=== PATIENT | female | born 2000 | race Caucasian/White ===

== ENCOUNTER 2022-07-15 18:27 | Observation (INO) | payer OTHER ==
--- OUTSIDE RECORDS SUMMARY | 2022-07-15 18:31 | XMS REPORT | Continuity of Care Document ---
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 09:14:53 RAGINI 2022-07-13 2022-07-13 Emergency X [facility] ERT [id number] [facility] 12:25:00 17:02:00 TR rowan [facility] 2022-07-13 2022-07-13 Emergency [facility] [id number] [facility] 12:25:00 17:02:00 Tr BRICENO 350.1.13.10 anum [facility] 4.2.7.2.686 [facility] [id number] [facility] 084 Branch 2022-07-05 2022-07-05 Office [facility] 1.2.840.114 [id number] [facility] 14:32:46 16:14:51 Visit RAGINI Qureshi 350.1.13.21 Co llege 0.2.7.2.686 [id number] [facility] paulina 510 e 2022-06-28 2022-06-29 Outpatient DEREK MENDES [facility] [id number] [facility] 10:07:31 10:14:10 BASSEM kilpatrick of Medicin e 2022-06-282022-06-28 Outpatient EL CINTHYA, SLE Surgery [id number] [facility] 06:44:00 10:00:00 [facility] 2022-06-28 2022-06-28 [facility] [id number] 06:44:00 10:00:00 Encounter [facility] 2022-06-28 2022-06-[address] [facility] [id number] 08:01:00 08:53:00 Event AudreyLashay Noris [facility] 2022-06-28 2022-06-28 Surgery [facility] [id number] 08:00:00 08:30:00 [facility] 2022-06-28 2022-06-28 Travel [facility] [id number] [facility] 00:[facility]00 00:00:00 [facility] 2022-06-17 2022-06-17 Outpatient [facility] [id number] SLE 10:28:06 23:59:00 2022-06-17 2022-06-17 [facility] [id number] 09:45:00 23:59:00 Encounter [facility] 2022-06-17 2022-06-17 Travel [facility] [id number] [facility] 00:00[facility]00 00:00:00 [facility] 2022-06-14 2022-06-14 Office DEREK Gomez 1.2.840.114 [id number] [facility] 16:30:00 17:27:[address] [facility] AMBUL[facility] 350.1.13.21 College Y 0.2.7.2.686 [id number] Medi paulina 325 e 2022-06-05 2022-06-05 Emergency ER [facility] [id number] SLSDanny 09:52:00 11:52:00 JINIT 2022-06-05 2022-06-[address] [facility] [id number] [facility] 09:52:00 11:52:00 [facility] 2022-06-02 2022-06-02 Outpatient DEREK WORRELL [facility] [id number] [facility] 16:40:32 16:40:32 SHASHANK Grey ge of Medicin e 2022-04-19 2022-04-19 Emergency Mahad, 1.2.840.1 [id number] Methodi 11:13:00 11:55:00 Linda 94780.1.1 771 Bruce 3.430.2.7 Hospit a .3.140346 l .8 2022-04-19 2022-04-19 Emergency MAHAD, [facility] [id number] [place] [address] 00:00:00 00:00:[address] 2022-04-19 2022-04-19 Travel 1.2.840.1 1.2.167.633 [id number] Methodi 00:00:00 00:00:[address] 3.430.2.7 0.2.7.3.698 Ho spita .3.149373 084.8 l .8 2021-12-14 2021-12-14 Outpatient [facility] PDPFFEQ XAR [facility] 00:00:00 00:00:00 [facility]- 07 2021-12-07 2021-12-07 Outpatient [facility]H CO[facility] PDPFFEQ XAR COH 00:00:00 00:00:00 [facility]-2021-11-18 2021-11-18 Outpatient DEREK ADHIKARI [facility] [id number] [facility] 08:57:48 09:03:20 MILAGRO Greyg e of Medicin e 2021-11-12 2021-11-12 Outpatient ARMANDO [facility] [id number] [facility] 13:02:16 13:19:29 Colleg e of Medicin e 2021-10-05 2021-10-05 Emergency 1.2.840.1 [id number] [id number] Methodi 15:52:00 16:53:[address] 3.430.2.7 Hospit a .3.902042 l .8 2021-10-05 2021-10-05 Emergency 1.2.840.1 [id number] 2100 [id number] Methodi 15:52:00 16:53:[address] 3.430.2.7 Hospit a .3.453071 l .8 2021-09-22 2021-09-22 Emergency Raymundo, 1.2.840.1 [id number] Methodi 21:59:00 23:09:[address] Deng 3.430.2.7 Hospit a .3.005037 l .8 2021-09-22 2021-09-22 Emergency Raymundo, 1.2.840.1 2099 [id number] Methodi 21:59:00 23:09:[address] Deng 3.430.2.7 Hospit a .3.094883 l .8 2021-09-22 2021-09-22 Travel 1.2.840.1 1.2.130.531 4741 [id number] Methodi 00:00:00 00:00:[address] 3.430.2.7 0.2.7.3.698 Ho spita .3.599516 084.8 l .8 2021-09-22 2021-09-22 Travel 1.2.840.1 1.2.257.445 [id number] [id number] Methodi 00:00:00 00:00:[address] 3.430.2.7 0.2.7.3.698 Ho spita .3.685406 084.8 l .8 2021-07-11 2021-07-11 Emergency Pham, 1.2.840.1 [id number] Methodi 22:59:00 23:14:[address] Beth 3.430.2.7 Hospit a .3.811459 l .8 2021-07-102021-07-10 Emergency 1.2.840.1 [id number] 2100 [id number] Methodi 19:42:00 20:40:[address] 3.430.2.7 Hospit a .3.942321 l .8 2021-07-10 2021-07-10 Travel 1.2.840.1 1.2.768.669 3346 [id number] Methodi 00:00:00 00:00:[address] 3.430.2.7 0.2.7.3.698 Ho spita .3.744839 084.8 l .8 2021-05-31 2021-05-31 Emergency Acosta, 1.2.840.1 [id number] Methodi 15:58:00 18:57:[address] 3.430.2.7 Hospit a .3.315977 l .8 2021-05-31 2021-05-31 Travel 1.2.840.1 1.2.111.630 5226 [id number] Methodi 00:00:00 00:00:[address] 3.430.2.7 0.2.7.3.698 Ho spita .3.005105 084.8 l .8 2020-08-03 2020-08-03 [place] [address] 2100 [id number] [place] 00:00:00 00:00:00 KAIT [address] 2020-03-14 2020-03-[address] [facility] 064 [id number] [place] 00:00:00 00:00:00 SOFIE [address] Results Test Description Test Time Test Comments Results Result Comments Source TEST, SERUM 2022-07-13 19:10:33 Test Item Value Reference Range Interpretation Comme nts PREG SERUM (test code = 2170917750) Negative MIQUEL (test code = MIQUEL) Less than 10 IU/L. ?If low titer or ectopic is suspected, resubmit specimen in 48-72 hours. [facility] METABOLIC PANEL (61739)2022-07-13 18:59:49 Test Item Value Reference Range Interpretation Comments NA (test code = 139 mmol/L 135-145 7489306323) K (test code = 4.1 mmol/L 3.5-5 4502427258) CL (test code = 109 mmol/L 98-108 H 1773697500) CO2 TOTAL (test code = 21 mmol/L 23-31 L 9766804762) AGAP (test code = 2-16 8858546557) BUN (test code = 5 mg/dL 7-23 L 5987093006) GLUCOSE (test code = 85 mg/dL 70-110 5553734286) CREATININE (test code = 0.71 mg/dL 0.5-1.04 6724634640) TOTAL BILI (test code = 0.5 mg/dL 0.1-1.3 1491641071) CALCIUM (test code = 9.6 mg/dL 8.6-10.6 7083789263) T PROTEIN (test code = 7.3 g/dL 6.3-8.2 8788171247) ALBUMIN (test code = 4.5 g/dL 3.5-5 2852809197) ALK PHOS (test code = 75 U/L 34-122 5327960413) ALTv (test code = 12 U/L 5-35 1742-6) AST(SGOT) (test code = 22 U/L 13-40 5346922333) eGFR (test code = mL/min/1.73m2 5378578121) MIQUEL (test code = MIQUEL) Association of Glomerular Filtration Rate (GFR) and Staging of Kidney Disease* + --+ --+ ------+| GFR (mL/min/1.73 m2) ?| With Kidney Damage ?| ?Without Kidney Damage+ --------+ --------+ +| ?>90 ?| ?Stage one ?| ? Normal ?+ ---+ ---+ -------+| ?60-89 ?| ?Stage two ?| ? Decreased GFR ? + --+ --+ ------+| ?30-59 ?| ?Stage three ?| ? Stage three ? + --+ --+ ------+| ?15-29 ?| ?Stage four ? | ? Stage four ?+ ---+ ---+ -------+| ?<15 (or dialysis) ? ?| ?Stage five ? | ? Stage five ?+ ---+ ---+ -------+ *Each stage assumes the associated GFR level has been in effect for at least three months. ?Stages 1 to 5, with or without kidney disease, indicate chronic kidney disease. Notes: Determination of stages one and two (with eGFR >59mL/min/1.73 m2) requires estimation of kidney damage for at least three months as defined by structural or functional abnormalities of the kidney, manifested by either:Pathological abnormalities or Markers of kidney damage (including abnormalities in the composition of the blood or urine or abnormalities in imaging tests). Lab Interpretation Abnormal (test code = 02721-2) [facility] 18:59:49 Test Item Value Reference Range Interpretation Comments LIPASE (test code = 6667014522) 45 U/L 0-220 Lab Interpretation (test code = Normal 15421-2) [facility] WITH [id number] 18:41:27 Test Item Value Reference Range Interpretation Comments WBC (test code = See_Comment [Automated 2890-2) message] The sy stem which generated this result transmitted reference range : 4.30 - 11.10 10*3/?L. The reference range was not used to interpret this result as normal/abnormal . RBC (test code = See_Comment [Automated 758-8) message] The sy stem which generated this result transmitted reference range : 3.93 - 5.25 10*6/?L. The reference range was not used to interpret this result as normal/abnormal . HGB (test code = 13.5 g/dL 11.6-15 718-7) HCT (test code = 39.6 % 35.7-45.2 4544-3) MCV (test code = 84.4 fL 80.6-95.5 787-2) MCH (test code = 28.8 pg 25.9-32.8 785-6) MCHC (test code = 34.1 g/dL 31.6-35.1 786-4) RDW-SD (test code = 38.2 fL 39-49.9 L 23878-0) RDW-CV (test code = 12.6 % 12-15.5 788-0) PLT (test code = See_Comment [Automated 777-3) message] The sy stem which generated this result transmitted reference range : 166 - 358 10*3/ ?L. The reference r neetu was not used to interpret this result as normal/abnormal . MPV (test code = 10.2 fL 9.5-12.9 50086-7) NRBC/100 WBC (test See_Comment [Automat ed code = 1413267844) message] The system which generated this result transmitted reference range : 0.0 - 10.0 /100 WBCs. The refer ence range was not u sed to interpret th is result as normal/abnormal . NRBC x10^3 (test code See_Comment [Auto mated = 8037628893) message] The s ystem which generated this result transmitted reference range : 10*3/?L. The reference range was not used to interpret this result as normal/abnormal . GRAN MAT (NEUT) % 62.8 % (test code = 770-8) IMM GRAN % (test code 0.40 % = 0767674158) LYMPH % (test code = 27.9 % 736-9) MONO % (test code = 6.9 % 5905-5) EOS % (test code = 1.3 % 713-8) BASO % (test code = 0.7 % 706-2) GRAN MAT x10^3(ANC) 6.68 10*3/uL 1.88-7.09 (test code = 0276474506) IMM GRAN x10^3 (test 0.04 10*3/uL 0-0.06 code = 8378907322) LYMPH x10^3 (test code 2.96 10*3/uL 1.32-3.29 = 731-0) MONO x10^3 (test code 0.73 10*3/uL 0.33-0.92 = 742-7) EOS x10^3 (test code = 0.14 10*3/uL 0.03-0.39 711-2) BASO x10^3 (test code 0.07 10*3/uL 0.01-0.07 = 704-7) Lab Interpretation Abnormal (test code = 71225-0) [facility] Hfms6422-06-93 14:12:14 Test Item Value Reference Range Interpretation Comments Case Report (test code Surgical Pathology = 104) Report Case: [id number] Authorizing Provider: Bassem Mendes Collected: 06/28/2022 08:31 AM Ordering Location: [facility] Endoscopy Received: 06/28/2022 11:23 AM Services Pathologist: Sierra Esquivel MD Specimen: Biopsy, Gastric, Random, R/O H.Pylori DIAGNOSIS (test code = o9vcvYRhTSBmo5voPIQhfC 3220) FuZzEwMzNcZnRuYmpcdWMx IHtccnRmMVxlcGljOTYwMl nawaBgRHMiyDKcJ3Iapbrp CCqaSA9qXC9ppThotJAqaK QwPOPyGtXei9vib677pQPg z4icWREUsawzkNv9zZpzJ3 1fe4E7RhcrJ10vwPJqHFQ2 HJJsKIHdyKSeZPWbLWU3XA LbyWZcU3edGWSoRZ8cgriz ABmbXTipWGFzzKK0YOJxlR LuC2BwHCUiFFetPMNibzz5 AbTlLv8rgTJkbZwvDLtgNP NsXMGqLEkgEHSuZqIlU4YW IZYSVCbtFrKNZU7MDOWMG1 KTTMtsdEUtBGCtCQ8rEeXB N7TOLyNyV2CPWAMBYAEQDN dbxYGwOZKxCV1kOo7pABIV ENZNLeFQQVBZDQYHMZ3ALU LTAIYGJ63GA6DKLHEYMwZH REVOVElGSUVEIEJZIFJPVV LEKcIfW3VIRD5nrQOcCFWo UUrmWHCoJ9OipOygaENanU zavwPnBLean7AoRNloJUJr QR5luMgqNCYfMB6tWUIcO1 yrmG8smgr6FkKuVSVwMuK4 PJQolqI3Nlb6WBOmXKxww0 etm4VbCAUqGQm1iMlsJyCe EUTue3jgneRjCfByLOYqTT MxFCLcnNDeO729h0ykb8sj jeRvuRS7HLEuMXB9AAinwm JphpG3IDvdcMZtOaQ4WFpk rqZoKXdkwqZwroVnOgy3TG IuC677DKA1sWhsy3ovJNN0 XJOmZLExRcDiUo7sgBNyM0 55NPTlRGNEXEMdzVe2WXTt smMixrDtxUSWw613S383y4 qjXLDgdvXgnYvVnefow0so Q512COJrxWEahhDlHgWxSE NmqGBtsSZ9OLBsLI3vpthp NJweJVlfOAXwnbS0ORNhoL NcH7PhFMLkPF2btyblDUG1 HJscKEFnKPE4FfCqXLAnu8 Nxdac3RbMidr6jan86QQR4 k0WsrYwsUPI9DCL8DrBwDx 6lyANfIDBfJB7bLvQzrUIt BEQmnq85gFckRLvoLFM5LP WmygDja0Xdp1wyMeYzbwWa G1ulY8GgTDZnLZJuGXQyIh HqrtFxk6Ygm8VkqBHoiUu0 q1cyLZBfHUJakSqku2ydXM V0KIKmcZRmI2nufK3xRKWc NB3vnewnl0blJDtbLRihBS CpcMN3apV7PCMcmFSaR3Yd qQ0uCOLgEXkvONKvmks5Ap TpOt5pcGPnlXbaRRfzLtor YWdlXHBnbmNvbnRccGduZG VjXHBsYWluXHBsYWluXGYw XGZzMjRccWxcbGFuZzEwMz NcaGljaFxmMVxkYmNoXGYx CWwyF6toIiQaZrXgVgd7CS UimFCdXUJhPzi5VEWgfXWp HNIXnDglrK7xFSZnqFukvH 4buCE7VASjvfPmjFQBdB8r CVVVqV3yTvV4BCNaVvs6HD y0IFYgkVSdkJ6= CPT Code(s) (test code n7dchPFdAZUzvWW4RhSsIA = 3357) Ghf0brn9JbyVRgmZHzADno mDKhnpEixs51jCF9aU08FB 4bIOLyYxD8DJYawaO2Khb9 GWYkEILodWDgH431z6gdo8 kiycBtwDI7dRfbHYRsfaka RnK0QIwcEUFhrnfoJXk7BF boBTTuhUI4UFVsvWJdA1Vw KEWtIB6qmar2HYF1DBhiHE EsRyO3YSFhoOGcXMQlrDxj PIlbf658EFA8XuIxENBfqn QteSmbxA2bRlDkEMB4EIKc HBY9UZpdOYJ3 CLINICAL HISTORY (test r7fohIVtJJHqjCI5SeNaDJ code = 3356) Mwc3gtc0RhaLIzeKPbWJjt xZBtcsMwkz92dRW9xX11PR 3cCGMjPnO0XMGvnlD6Ldl6 BBAbNBFzuEUcT753u7gbl0 ctmeUgcDT2zHrfEFHlazxj CwZ9FCvlWVRwtuvwCWo4NB txXYDhwBC8BZMusIOjV9Sb NYXxQF3nmpa5FFM3ROjwOQ BjTzZ7WIMxwNKmHRTvkZpz RVhud404KLK8OxGbFHQmnd GbsOqihH7eXoIhWKHPTU4i cmFsaXplZCBhYmRvbWluYW wgcGFpblxwYXJ9 GROSS DESCRIPTION (test k7gsdXHwTLRawWVNDGYnZ5 code = 0895503325) teyvCdZQHjmJEoA5Pelyef DIznEH1mMU4gfJesyCPflE ArEV6SNFPzYiTqTXIvsSRf uoLxIwFxNNLrgUWrzNL0LV YrTE9jvsqvDUavVPbeHEGc wbW9IAKfdEXxG9GpEOBvKD 8eculuQLB6ZGplzE9nohFI RrhzKq1dcSZzzOnqEpWiMl NoYXJzZXQwXGZuaWwgQXJp XJj5wU5BLoygY90xw4B9Bo v8QIEdVXRdQ9UiDR9qLIBn cDDvF60UKbodSDR1CCPFFi deFUXwYM8Mu1khLAZqoEAg TWY4PPscbAFvFXLwFINiNK m7MEFdJLeqqODvCR5ydWxc JzgsaLovm8NmrWRrPQjjGP KuDSAvHGalZEWoTA0DNpMk ALMwUNYuJOAkXHs2LZj5UJ 6XIdAcXLFrTTz3HuM5BnOq LBk6RZhdQK7OVAKcRJHuHW F5RdV0BXD0TNUcVMCsFwAo XGYgQXJpYWwgXFxmbCBcXG 5ltDqehWBoicHHQrQIpL9z k4otBKiuj4KppCEhGSYnkh ANClxlcGljTmVzdERvYzEg DQpcbHRycGFyXGxpbjBccm luMCANClxsdHJjaFxjZjFc ZnMyMCBSZWNlaXZlZCBpbi Qtf8GeDUvjjuUaGUOppPUw IHdpdGggdGhlIHBhdGllbn ZqN4M3laHvXP5wMOPlVWHu K6MnCNKvD29sICEttY3iPD AcXF8jDBb5UAJnKYLxQflk A9YkaXRpVmIrfP3cu1hzUI LrPDMkGGPtmwJuk3Q9DQDo v8T1WCKyyfUcfWVftZCjNO WggRIjMEIwxKHkvhigYZ0j AYGxOUJ9Fs9qaFWbXFSdsc X3l5WwSNaxFCCyCxybUMHj YBftoQLwXV9MP4kioYCxDF LDacV5nfzsXZuRPJVYGATl QVNDUCljbVxwYXIgDQpccG JyKS4GZIAuNChwtoQjMI0O SGMeJIzkZTLpnYNZODV6XS 7nSBgulAXskxnjJWExT3Pj K5LaxwIuvMPqUFYdnnUqk2 giDNR6EUQcvHUotWEdRdIy AygkYTM0QYjvv6rxOFI8UU NsbXVsdDAgDQpcZnMxNntc XHSzK0DfT9QnmtG5RNd0 MICROSCOPIC DESCRIPTION u1tnqMFoRXRulAL9KpMnIC (test code = 3371) Yah4vma3SjfDAsyWEvAJcd iSDffiErka18zGA4qF92RJ 6yRCNzPnC4JJKxpnT5Afs4 JGHzHJFzhUEmL981l6uue4 faorLmwXX9kTwoEOHdnsoq PiQ4IUzaGNGqufktFVq7MG kuWUUhkXT6FIMttSQfL0Et DWVcNC8rnih3FHX6QPcuSE CpEaW2PMCunJSmIEKrqYfa WPxvt941FCI8AsDmMNAclw RpiScaqE7tLiZgHJCSEDKx j9ZnUTXtHEFucr8= [facility] [id number] 14:12:14Surgical Pathology Report Case: [id number] Authorizing Provider: Bassem Mendes Collected: 06/28/2022 08:31 AM Ordering Location: [facility] Endoscopy Received: 06/28/2022 11:23 AM Services Pathologist: Sierra Esquivel MD Specimen: Biopsy, Gastric, Random, R/O H.Pylori STOMACH, RANDOM BIOPSY: - REACTIVEGASTROPATHY - NO HELICOBACTER PYLORI MICROORGANISMS IDENTIFIED BY ROUTINE STAIN CC/pl Signing Pathologist Direct Phone Line: [phone] signed by Sierra Esquivel MD on 06/29/2022 at 2:12 [id number] u9Aglmmklharc abdominal painA. Biopsy, Gastric.Received in formalin labeled with the patient's name, medical record number and "gastric biopsy" are 2 dominguez soft tissue fragments each measuring 0.3 cmsubmitted in toto in A1.BRENNA Mitchell, PA ([facility])cmPerformed.POCT , [id number] 07:00:00 Test Item Value Reference Range Interpretation Comments Test Urine, POC (test Negative code = 5806310) Control line present?, POC (test Yes code = 0904589) Background clear?, POC (test code Yes = 8178877) UPT Cassette Lot #, POC (test code 3419228 = 2538777) UPT Cassette Expiration Date, POC 10/06/2023 (test code = 1938211) Lab Interpretation (test code = Normal 81742-7) [facility], [id number] 10:47:56 Test Item Value Reference Range Interpretation Comments TEST SERUM (BEAKER) (test Negative code = 584) [id number] 10:46:53 Test Item Value Reference Range Interpretation Comments LIPASE (BEAKER) (test code = 749) 22 U/L 6-51 Provider Education Specialist ID - JACKIEOperator ID - JACKIEOperator ID - JACKIEOperator ID - INDIGO COMPREHENSIVE METABOLIC [id number] 10:46:16 Test Item Value Reference Range Interpretation Comments TOTAL PROTEIN 8.1 gm/dL 6.0-8.5 (BEAKER) (test code = 770) ALBUMIN (BEAKER) 4.4 g/dL 3.5-5.0 (test code = 1145) ALKALINE 74 U/L 30-115 PHOSPHATASE (BEAKER) (test code = 346) BILIRUBIN TOTAL 0.2 mg/dL 0.1-1.2 (BEAKER) (test code = 377) SODIUM (BEAKER) 138 meq/L 135-148 (test code = 381) POTASSIUM (BEAKER) 4.4 meq/L 3.6-5.5 (test code = 379) CHLORIDE (BEAKER) 108 meq/L 98-106 H (test code = 382) CO2 (BEAKER) (test 21 meq/L 20-29 code = 355) BLOOD UREA 8 mg/dL 10-26 L NITROGEN (BEAKER) (test code = 354) CREATININE 0.74 mg/dL 0.50-1.20 (BEAKER) (test code = 358) GLUCOSE RANDOM 94 mg/dL 70-110 (BEAKER) (test code = 652) CALCIUM (BEAKER) 9.3 mg/dL 8.5-10.5 (test code = 697) AST (SGOT) 14 U/L 5-40 (BEAKER) (test code = 353) ALT (SGPT) 11 U/L 5-50 (BEAKER) (test code = 347) EGFR (BEAKER) 119 Interpretatio n of eGFR (test code = 1092) mL/min/1.[address] age Description sq m Result G1 Joleen l or high >=90 G2 Mildly decreased 60-89 G3a Mildl y to moderately 45-5 9 G3b Moderately to s everely 30-44 G4 Severl y decreased 15-29 G5 Kidney failure <15Reported eGF R is based on the CKD-EPI 2020 equation that d oes not use a race coefficientEsti mated GFR is not as accur ate as Creatinine Radha aleman in predicting glom erular filtration rate . Estimated GFR is not appl icable for dialysis patien ts Provider Education Specialist ID - JACKIEOperator ID - JACKIEOperator ID - JACKIEOperator ID - JACKIEOperator ID - JACKIEOperator ID - JACKIEOperator ID - JACKIEOperator ID - JACKIEOperator ID - JACKIEOperator ID - JACKIEOperator ID - JACKIEOperator ID - JACKIEOperator ID - JACKIEOperator ID - JACKIEOperator ID - JACKIEOperator ID - JACKIECBC W/PLT COUNT & AUTO [id number] 10:28:32 Test Item Value Reference Range Interpretation Comments WHITE BLOOD CELL COUNT (BEAKER) 9.8 K/ L 4.0-10.0 (test code = 775) RED BLOOD CELL COUNT (BEAKER) 4.81 M/ L 4.00-5.00 (test code = 761) HEMOGLOBIN (BEAKER) (test code = 13.8 GM/DL 12.0-15.5 410) HEMATOCRIT (BEAKER) (test code = 41.8 % 36.0-46.0 411) MEAN CORPUSCULAR VOLUME (BEAKER) 86.9 fL 82.0-99.0 (test code = 753) MEAN CORPUSCULAR HEMOGLOBIN 28.7 pg 27.0-33.0 (BEAKER) (test code = 751) MEAN CORPUSCULAR HEMOGLOBIN CONC 33.0 GM/DL 32.0-36.0 (BEAKER) (test code = 752) RED CELL DISTRIBUTION WIDTH 13.6 % 12.0-15.0 (BEAKER) (test code = 412) PLATELET COUNT (BEAKER) (test 351 K/CU MM 150-430 code = 756) MEAN PLATELET VOLUME (BEAKER) 10.0 fL 6.0-11.5 (test code = 754) NUCLEATED RED BLOOD CELLS 0 /100 WBC 0-0 (BEAKER) (test code = 413) NEUTROPHILS RELATIVE PERCENT 59 % (BEAKER) (test code = 429) LYMPHOCYTES RELATIVE PERCENT 32 % (BEAKER) (test code = 430) MONOCYTES RELATIVE PERCENT 7 % (BEAKER) (test code = 431) EOSINOPHILS RELATIVE PERCENT 2 % (BEAKER) (test code = 432) BASOPHILS RELATIVE PERCENT 1 % (BEAKER) (test code = 437) NEUTROPHILS ABSOLUTE COUNT 5.77 K/ L 1.80-8.00 (BEAKER) (test code = 670) LYMPHOCYTES ABSOLUTE COUNT 3.17 K/ L 1.48-4.50 (BEAKER) (test code = 414) MONOCYTES ABSOLUTE COUNT (BEAKER) 0.65 K/ L 0.00-1.30 (test code = 415) EOSINOPHILS ABSOLUTE COUNT 0.16 K/ L 0.00-0.50 (BEAKER) (test code = 416) BASOPHILS ABSOLUTE COUNT (BEAKER) 0.06 K/ L 0.00-0.20 (test code = 417) IMMATURE GRANULOCYTES-RELATIVE 0 % 0-0 PERCENT (BEAKER) (test code = 2801) GFR [id number] 21:21:13 Test Item Value Reference Range Interpretation Comments GFR calculation (test See Below GFR no t valid on code = 1455) patients less t lorenzana 18 years of age . [facility]
[2022-07-15] MEDS ORDERED: ONDANSETRON 4 MG/2 ML VIAL ONE (18:55)
[2022-07-15] MEDS ORDERED: HYDROMORPHONE HCL 1 MG/ML INJ ONE (18:55)
[2022-07-15 19:03] LABS: Absolute Lymphocytes (CBC) 1.7 K/uL (0.7-4.9); Hematocrit 37.5 % (36.0-45.0); Lymphocytes % 14.4 % (15.3-44.8); MCV 85.1 fL (80-100); MPV 8.3 fL (7.6-11.3); RBC Red Blood Cell Count 4.41 M/uL (3.86-4.86)
[2022-07-15] MEDS ORDERED: LORazepam 2 MG/ML VIAL ONE (19:13)
[2022-07-15] MEDS ORDERED: NA CHLORIDE 0.9% 1,000 ML ONE ×2 (19:21→23:19)
[2022-07-15 19:32] LABS: Albumin 3.9 g/dL (3.4-5.0); Bilirubin Total 0.2 mg/dL (0.2-1.0); Protein, Total 7.9 g/dL (6.4-8.2)
[2022-07-15 19:46] LABS: Potassium 3.9 mmol/L (3.5-5.1)
[2022-07-15] MEDS ORDERED: HALOPERIDOL LACT 5 MG/ML INJ ONE (19:54)
--- NOTE | 2022-07-15 20:28 | RAD REPORT ---
EXAM DESCRIPTION: US - Abdomen Exam Limited - 07/15/2022 8:18 pm CLINICAL HISTORY: abdominal pain COMPARISON: Abdomen Pelvis W Contrast dated 07/15/2022 FINDINGS: The gallbladder demonstrates sludge but no shadowing gallstones No pericholecystic fluid o r gallbladder wall thickening. The common bile duct is normal measuring 3 mm. The liver demonstrates no findings of intrahepatic biliary dilatation. IMPRESSION: Negative for cholelithiasis. Small volume of sludge noted. No biliary ductal dilatation.
--- NOTE | 2022-07-15 20:29 | RAD REPORT ---
EXAM DESCRIPTION: CTAbdomen Pelvis W Contrast - 07/15/2022 7:32 pm CLINICAL HISTORY: abdominal pain COMPARISON: No comparisons TECHNIQUE: CT of the abdomen and pelvis was performed. All CT scans are performed using dose optimization technique as appropriate and may include automated exposure control or mA/KV adjustment according to patient size. FINDINGS: Lower chest: No acute abnormality. Liver: No acute abnormality or suspicious lesions. Biliary: No biliary ductal dilatation. Stomach: No significant focal abnormality. Duodenum: No significant focal abnormality. Pancreas: No significant abnormality. Spleen: No significant abnormality. Adrenal: No suspicious lesions. Kidney/ureter: No hydronephrosis. No renal calculi. Retroperitoneum: No retroperitoneal adenopathy. Vascular: No aneurysm. Bowel: No significant focal abnormality. Normal appendix. Peritoneum: No ascites or free air. Bladder: Grossly unremarkable. Reproductive: No adnexal masses. Bones: No acute fracture. Other: n/a IMPRESSION: No acute intra-abdominal or pelvic finding. Normal appendix.
--- NOTE | 2022-07-15 21:12 | ER ---
Nurse's Notes [facility] Name: Lesley Lopez Age: 21 yrs Sex: Female : 2000 Arrival Date: 07/15/2022 Time: 18:41 Bed 5 Private MD: Diagnosis: Acute Cholecystitis Presentation: 07/15 19:16 Chief complaint: Patient states: severe RUQ pain. Coronavirus screen: At this time, the iw client does not indicate any symptoms associated with coronavirus-19. Ebola Screen: Patient negative for fever greater than or equal to 101.5 degrees Fahrenheit, and additional compatible Ebola Virus Disease symptoms Patient denies exposure to infectious person. Patient denies travel to an Ebola-affected area in the 21 days before illness onset. No symptoms or risks identified at this time. Initial Sepsis Screen: Does the patient meet any 2 criteria? Does the patient have a suspected source of infection? No. Patient's initial sepsis screen is negative. Risk Assessment: Do you want to hurt yourself or someone else? Patient reports no desire to harm self or others. 19:16 Method Of Arrival: EMS: [facility] iw 19:16 Acuity: JODY 3 iw 23:10 Onset of symptoms was July 04, 2022. kl [employer] MEMBER: 23:11 LMP N/A - Irregular menses kl Historical: - Allergies: 19:17 No Known Allergies; iw - Home Meds: 23:52 Atarax Oral [Active]; Prozac Oral [Active]; Seroquel Oral [Active]; Trazodone Oral kl [Active]; Bentyl Oral [Active]; Pepcid Oral [Active]; - PMHx: 23:52 Major depressive disorder; Anxiety; PTSD; insomnia; kl - Immunization history:: Adult Immunizations not up to date. - Social history:: Smoking status: Patient denies any tobacco usage or history of. Screenin:20 Abuse screen: Denies threats or abuse. Abuse screen: Denies threats or abuse. kl Nutritional screening: No deficits noted. Tuberculosis screening: No symptoms or risk factors identified. Fall Risk None identified. Assessment: 19:18 General: Appears distressed, uncomfortable, well groomed, well developed, Behavior is kl anxious, restless. Pain: Complains of pain in abdomen Pain currently is 10 out of 10 on a pain scale. Neuro: Level of Consciousness is awake, obeys commands, Oriented to person, place, time, situation. Cardiovascular: Rhythm is sinus tachycardia. Respiratory: No deficits noted. Airway is patent Respiratory effort is even, unlabored, Respiratory pattern is hyperventilation. GI: Abdomen is tender to palpation X 4 quads. 20:15 Reassessment: Patient appears in no apparent distress at this time. Patient states kl symptoms have improved. pt sleeping respirations even nonlabored. 21:00 Reassessment: Patient appears in no apparent distress at this time. Patient and/or kl family updated on plan of care and expected duration. Pain level reassessed. Patient is alert, oriented x 3, equal unlabored respirations, skin warm/dry/pink. 23:10 GI: Bowel sounds present X 4 quads. kl Vital Signs: 19:16 BP 96 / 79; Pulse 117; Resp 28; Pulse Ox 100% on R/A; iw 19:19 BP 99 / 72; Pulse 105; Resp 22; Temp 98.5(O); Pulse Ox 100% on R/A; Pain 10/10; kl 20:05 Pulse 56; Resp 14; Pulse Ox 98% on R/A; kl 21:46 BP 96 / 58; Pulse 70; Resp 16; Temp 98(TE); Pulse Ox 99% on R/A; kl 23:55 BP 115 / 72; Pulse 58; kl ED Course: 18:41 Patient arrived in ED. iw 18:42 Jose Parker PA is PHCP. jmm 18:42 Jem Osborn DO is Attending Physician. jmm 18:55 Maintain EMS IV. Dressing intact. Good blood return noted. Site clean \T\ dry. Gauge \T\ iw site: right hand. 19:17 Triage completed. iw 19:17 Inserted saline lock: 20 gauge in right antecubital area, using aseptic technique. iw 19:33 CT Abd/Pelvis - IV Contrast Only In Process Unspecified. EDMS 20:20 US Abdomen Limited In Process Unspecified. EDMS 21:10 Vinnie George MD is Hospitalizing Provider. jmm 23:10 No provider procedures requiring assistance completed. Patient admitted, IV remains in kl place. 23:10 Arm band placed on right wrist. kl 23:11 Patient has correct armband on for positive identification. kl Administered Medications: 18:43 Not Given (Duplicate Order): Dilaudid (HYDROmorphone) 1 mg IVP once iw 18:43 Not Given (Duplicate Order): Zofran (Ondansetron) 4 mg IVP once; over 2 minutes iw 18:50 Drug: Zofran (Ondansetron) 4 mg Route: IVP; Site: right hand; iw 18:50 Drug: Dilaudid (HYDROmorphone) 1 mg Route: IVP; Site: right hand; iw 19:25 Follow up: Response: No change in condition kl 19:05 Drug: Ativan (LORazepam) 1 mg Route: IVP; Site: right antecubital; iw 19:25 Follow up: Response: No change in condition kl 19:48 Drug: HALdol (haloperidol) 5 mg Route: IVP; Site: right antecubital; kl 20:03 Follow up: Response: Marked relief of symptoms kl 20:02 Drug: NS 0.9% 1000 ml Route: IV; Rate: 1 bolus; Site: right antecubital; kl 21:30 Drug: Rocephin (cefTRIAXone) 1 grams Route: IV; Rate: calculated rate; Site: right kl antecubital; 22:45 Follow up: Response: No adverse reaction; IV Status: Completed infusion; IV Intake: [id number] 21:43 Drug: Flagyl (metroNIDAZOLE) 500 mg Volume: 100 ml; Route: IVPB; Rate: 200 ml/hr; kl Infused Over: 30 mins; Site: right antecubital; 22:00 Follow up: Response: No adverse reaction; IV Status: Completed infusion; IV Intake: kl 100ml 22:45 Follow up: Response: No adverse reaction; IV Status: Completed infusion; IV Intake: ll3 100ml 23:11 Drug: NS 0.9% 1000 ml Route: IV; Rate: 1 bolus; Site: right antecubital; ll3 Medication: 23:11 VIS not applicable for this client. kl Intake: 22:00 IV: 100ml; Total: 100ml. kl 22:45 IV: 100ml; Total: 200ml. ll3 22:45 IV: 50ml; Total: 250ml. ll3 Outcome: 21:11 Decision to Hospitalize by Provider. nargis 23:10 Admitted to Med/surg 23:10 Condition: improved 23:10 Discharge instructions given to patient, family, Instructed on the need for admit, Demonstrated understanding of instructions. 23:56 Patient left the ED. Signatures: Dispatcher [employer] Clarice Martinez RN RN kl Mickail, Joel, PA PA jmm Williams, Irene, RN RN iw Loubet, Lynsea, RN RN ll3 Corrections: (The following items were deleted from the chart) : 21:46 Home Meds: None; sabrina 21:46 PMHx: None; sabrina bennett 21:46 PSHx: None; [facility]
--- NOTE | 2022-07-15 21:12 | EDPHYS ---
Physician Documentation [facility] Name: Lesley Lopez Age: 21 yrs Sex: Female : 2000 Arrival Date: 07/15/2022 Time: 18:41 Bed 5 Private MD: ED Physician Jem Osborn HPI: 07/15 18:42 This 21 yrs old Female presents to ER via EMS with complaints of Abdominal Pain. jmm 18:42 The patient presents with abdominal pain. Onset: The symptoms/episode began/occurred jm acutely, today. The symptoms do not radiate. Associated signs and symptoms: Pertinent positives: nausea and vomiting. The symptoms are described as achy, sharp. This is a 21-year-old female with a history of depression the presents emerged department with complaints of epigastric pain. Patient has had ongoing epigastric pain that has been attributed to her gallbladder. Patient was evaluated at [facility] 2 days prior.. 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 - Social history:: Smoking status: Patient denies any tobacco usage or history of. ROS: 18:42 Constitutional: Negative for fever, chills, and weight loss, Cardiovascular: Negative jm for chest pain, palpitations, and edema, Respiratory: Negative for shortness of breath, cough, wheezing, and pleuritic chest pain. 18:42 Abdomen/GI: Positive for abdominal pain. 18:42 All other systems are negative. Exam: 18:42 Head/Face: atraumatic. Eyes: EOMI, no conjunctival erythema appreciated ENT: Moist jmm Mucus Membranes Neck: Trachea midline, Supple Chest/axilla: Normal chest wall appearance and motion. Cardiovascular: Regular rate and rhythm. No edema appreciated Respiratory: Normal respirations, no respiratory distress appreciated 18:42 Back: Normal ROM Skin: General appearance color normal MS/ Extremity: Moves all extremities, no obvious deformities appreciated, no edema noted to the lower extremities Neuro: Awake and alert Psych: Behavior is normal, Mood is normal, Patient is cooperative and pleasant 18:42 Constitutional: The patient appears alert, awake, in obvious pain. 18:42 Abdomen/GI: Inspection: obese Bowel sounds: normal, Palpation: severe abdominal tenderness, in the epigastric area, right upper quadrant and left upper quadrant. Vital Signs: 19:16 BP 96 / 79; Pulse 117; Resp 28; Pulse Ox 100% on R/A; iw 19:19 BP 99 / 72; Pulse 105; Resp 22; Temp 98.5(O); Pulse Ox 100% on R/A; Pain 10/10; kl 20:05 Pulse 56; Resp 14; Pulse Ox 98% on R/A; kl 21:46 BP 96 / 58; Pulse 70; Resp 16; Temp 98(TE); Pulse Ox 99% on R/A; kl 23:55 BP 115 / 72; Pulse 58; kl MDM: 18:42 Patient medically screened. [facility] 21:09 Data reviewed: vital signs, nurses notes. Counseling: I had a detailed discussion with [facility] the patient and/or guardian regarding: the historical points, exam findings, and any diagnostic results supporting the discharge/admit diagnosis, lab results, radiology results, the need for further work-up and treatment in the hospital. ED course: I discussed the patient with Dr. George whom accepted the patient for admission. Dr. George was at bedside to evaluate the patient. Recommends n.p.o. after midnight.. 07/15 18:42 Order name: CBC with Diff; Complete Time: 19:08 [facility] 07/15 18:43 Order name: CMP; Complete Time: 19:49 07/15 18:43 Order name: Lipase; Complete Time: 19:49 07/15 18:50 Order name: Test, Serum; Complete Time: 19:45 [facility] 07/15 21:16 Order name: SARS RAPID [facility] 07/15 21:17 Order name: Basic Metabolic Panel [facility] 07/15 21:17 Order name: Basic Metabolic Panel [facility] 07/15 21:17 Order name: CBC with Automated Diff [facility] 07/15 21:17 Order name: CBC with Automated Diff [facility] 07/15 21:17 Order name: Lipase [facility] 07/15 21:17 Order name: Lipase [facility] 07/15 18:43 Order name: CT Abd/Pelvis - IV Contrast Only; Complete Time: 20:31 [facility] 07/15 18:43 Order name: US Abdomen Limited; Complete Time: 20:31 [facility] 07/15 21:17 Order name: Liver (Hepatic) Function [facility] 07/15 21:17 Order name: Liver (Hepatic) Function [facility] 07/15 21:34 Order name: Urine Dipstick-Ancillary; Complete Time: 21:35 [facility] 07/15 21:36 Order name: Urine --Ancillary (enter results) ds4 07/15 22:53 Order name: Urine --Ancillary [facility] 07/15 18:42 Order name: IV Saline Lock; Complete Time: 18:50 [facility] 07/15 18:42 Order name: Labs collected and sent; Complete Time: 18:50 [facility] 07/15 21:17 Order name: NPO EDMS Administered Medications: 18:43 Not Given (Duplicate Order): Dilaudid (HYDROmorphone) 1 mg IVP once iw 18:43 Not Given (Duplicate Order): Zofran (Ondansetron) 4 mg IVP once; over 2 minutes iw 18:50 Drug: Zofran (Ondansetron) 4 mg Route: IVP; Site: right hand; iw 18:50 Drug: Dilaudid (HYDROmorphone) 1 mg Route: IVP; Site: right hand; iw 19:25 Follow up: Response: No change in condition kl 19:05 Drug: Ativan (LORazepam) 1 mg Route: IVP; Site: right antecubital; iw 19:25 Follow up: Response: No change in condition kl 19:48 Drug: HALdol (haloperidol) 5 mg Route: IVP; Site: right antecubital; kl 20:03 Follow up: Response: Marked relief of symptoms kl 20:02 Drug: NS 0.9% 1000 ml Route: IV; Rate: 1 bolus; Site: right antecubital; kl 21:30 Drug: Rocephin (cefTRIAXone) 1 grams Route: IV; Rate: calculated rate; Site: right kl antecubital; 22:45 Follow up: Response: No adverse reaction; IV Status: Completed infusion; IV Intake: [id number] 21:43 Drug: Flagyl (metroNIDAZOLE) 500 mg Volume: 100 ml; Route: IVPB; Rate: 200 ml/hr; kl Infused Over: 30 mins; Site: right antecubital; 22:00 Follow up: Response: No adverse reaction; IV Status: Completed infusion; IV Intake: kl 100ml 22:45 Follow up: Response: No adverse reaction; IV Status: Completed infusion; IV Intake: ll3 100ml 23:11 Drug: NS 0.9% 1000 ml Route: IV; Rate: 1 bolus; Site: right antecubital; ll3 Disposition Summary: 07/15/22 21:11 Hospitalization Ordered Hospitalization Status: Observation [facility] Provider: Vinnie George Location: Telemetry/MedSurg (observation) [facility] Condition: Stable [facility] Problem: new jm Bed/Room Type: Standard [facility] Symptoms: have improved(07/15/22 21:11) [facility] Room Assignment: [facility](07/15/22 22:29) Diagnosis - Acute Cholecystitis [facility] Forms: - Medication Reconciliation Form [facility] - SBAR form [facility] Addendum: 07/18/2022 23:37 Co-signature as Attending Physician, Jem Osborn DO I was immediately available on-site m s3 in the Emergency Department for consultation in the care of the patient. Signatures: Dispatcher [employer] EDClarice Travis RN RN kl Webb, Martha RN RUBEN Jose Parker PA PA jmm Williams, Irene, RN RN Jem Osborn DO DO ms3 Radha Chávez RN RN ll3 Corrections: (The following items were deleted from the chart) 07/15 18:43 18:43 IV Saline Lock ordered. [facility] 18:46 18:43 CBC+H.LAB.BRZ ordered. [facility] EDMS 18:50 18:43 Labs collected and sent ordered. [facility] 20:51 18:43 COMPREHENSIVE METABOLIC PANEL+C.LAB.BRZ ordered. [facility] 20:51 18:43 LIPASE+C.LAB.BRZ ordered. [facility] EDMS 21:11 21:11 are unchanged [facility] 22:29 21:11 [facility] 23:55 21:46 Home Meds: None; [facility] 23:55 21:46 PMHx: None; kl kl 23:55 21:46 PSHx: None; kl kl
[2022-07-15] MEDS ORDERED: ONDANSETRON 4 MG/2 ML VIAL IV PRN (21:14)
[2022-07-15] MEDS ORDERED: ACETAMINOPHEN 500 MG TAB PO PRN (21:14)
[2022-07-15] MEDS ORDERED: NA CHLORIDE 0.9% 50 ML ONE (21:31)
[2022-07-15] MEDS ORDERED: CEFTRIAXONE 1000 MG/VIAL ONE (21:31)
[2022-07-15 21:33] LABS: Urine Blood Negative (Negative); Urine Glucose Negative (Negative); Urine Protein Negative (Negative); Urine Specific Gravity 1.015 (1.005-1.030); Urine pH 7.5 (5.0-7.0)
[2022-07-15] MEDS ORDERED: D5 0.45 NS 1,000 ML IV SCH (22:00)
[2022-07-15 22:17] LABS: SARS-CoV-2 Antigen Rapid Res Negative (Negative)
[2022-07-15 22:53] LABS: Urine Specific Gravity/Preg 1.015 (1.005-1.030)
[2022-07-16 00:22] VITALS: BMI 34.9
[2022-07-16] MEDS: MORPHINE 4 MG/ML SYR IV PRN ×2 (01:24→16:21)
[2022-07-16] MEDS: METRONIDAZOLE 500mg IVPB 500 MG/100 ML BAG IV SCH ×3 (01:24→16:21)
[2022-07-16 06:55] LABS: Absolute Lymphocytes (CBC) 2.9 K/uL (0.7-4.9); Lymphocytes % 23.6 % (15.3-44.8); MPV 8.6 fL (7.6-11.3); RBC Red Blood Cell Count 3.95 M/uL (3.86-4.86)
[2022-07-16 07:14] LABS: ALT/SGPT 12 U/L (12-78); AST/SGOT 13 U/L (15-37); Alkaline Phosphatase 59 U/L (45-117); BUN Blood Urea Nitrogen 5 mg/dL (7-18); Bicarbonate 24 mmol/L (21-32); Bilirubin Total 0.1 mg/dL (0.2-1.0); Glomerular Filtration Rate 109 ml/min (=/>90); Glucose Level 138 mg/dL (74-106); Lipase 53 U/L (73-393); Protein, Total 6.4 g/dL (6.4-8.2); Sodium Level 141 mmol/L (136-145)
[2022-07-16 07:17] LABS: Bilirubin Direct < 0.1 mg/dL (0-0.2)
[2022-07-16] MEDS ORDERED: Ringers Lactate 1,000 ML IV ONE (08:05)
--- NOTE | 2022-07-16 08:29 | P.HP ---
Date of Service: 07/16/22 PC: This 32-year-old female presents emergency room with severe right upper quadrant abdominal pain for diagnosis and treatment. HPC: Patient has had 2 prior emergency room admissions for this right upper quadrant abdominal pain. On work-up was found to have cholecystitis with sludge and stones. She apparently was scheduled for an elective procedure next week, but could no longer stand the pain and presented to our facility. PSHx: Negative PMHx: Depression, PTSD, bipolar disorder Social Hx: No known allergies Sys R: No cough, wheeze, shortness of breath. No chest pain or palpitations. Denies any urinary complaints O/E: Awake alert vital signs are stable HEENT: Nonicteric Chest: Chest movement equal bilaterally Abd: Tender with positive Villela sign [place]: Intact Data: As documented chronic cholecystitis with cholelithiasis Impression: Chronic cholecystitis with cholelithiasis Plan: I will taken the operating room for laparoscopic possible open cholecystectomy with a cholangiogram. We will also do a liver biopsy. The risks of this procedure have been discussed with the patient and her grandmother. The possibility of bleeding, infection, injury to bile ducts blood vessels and intestines has been described. The possible need for an open and/or further surgeries and procedures was discussed. They understand and want to proceed.
[2022-07-16] MEDS ORDERED: CEFAZOLIN SODIUM 1 GM/VIAL ONE (08:35)
[2022-07-16] MEDS ORDERED: propofoL 200 MG/20 ML VIAL IV ONE (09:16)
[2022-07-16] MEDS ORDERED: MIDAZOLAM HCL 2 MG/2 ML INJ ONE ×2 (09:16→11:07)
[2022-07-16] MEDS ORDERED: FENTANYL CITR 250 MCG/5 ML ONE (09:17)
[2022-07-16] MEDS ORDERED: GLYCOPYRROLATE 0.2 MG/ML SYR ONE (09:17)
[2022-07-16] MEDS ORDERED: ROCURONIUM 50 MG/5 ML VIAL IV ONE (09:17)
[2022-07-16] MEDS ORDERED: ONDANSETRON 4 MG/2 ML VIAL ONE (09:18)
[2022-07-16] MEDS ORDERED: LIDOCAINE 2% MPF 5 ML VIAL ONE (09:18)
[2022-07-16] MEDS ORDERED: NEOSTIGMINE 1 MG/ML -10 ML VIAL ONE (09:18)
[2022-07-16] MEDS ORDERED: dexAMETHasone 10 MG/ML VIAL ONE (09:47)
--- NOTE | 2022-07-16 10:47 | P.OP ---
Preoperative diagnosis: Cholecystitis with cholelithiasis, biliary colic Postoperative diagnosis: The same Primary procedure: Laparoscopic cholecystectomy Secondary procedure: Liver Other procedure(s): Cholangiogram Anesthesia: General Estimated blood loss: Less than 10 cc Specimen: 1 gallbladder and contents, 2 Kike-Cut liver biopsies Operative Technique: The patient brought the operating room placed supine on the table. After the induction of adequate general endotracheal anesthesia, there the abdomen was prepped with a DuraPrep solution, and she was draped in usual aseptic manner. A subumbilical incision was made. This was brought down through the skin and subcutaneous tissue. Veress needle was now used to carefully enter the peritoneal cavity and after doing a hanging drop the needle was connected to the carbon dioxide and insufflated at the varus pressure. A pneumoperitoneum was created. We were able to use a large 12 mm trocar to safely enter into the peritoneal cavity. The camera was then placed down through this and we were able to visualize the right upper quadrant. With the patient placed in reverse Trendelenburg and rolled to the left, 2 5 mm trochars were placed on the right lateral side of the abdomen as well as one in the upper midline. A grasper was now placed on the fundus of the gallbladder. Another was placed on by Kelley superior pouch. Applying lateral traction we were able to expose the cystic duct and artery. There was a marked amount of thick tissue around the cystic duct consistent with chronic inflammation. Having isolated the cystic duct a clip was placed between the gallbladder and the cystic duct and opening was made into the cystic duct through which we obtained a normal intraoperative cho langiogram the catheter was now removed. Clips were placed on the distal portion of the cystic duct. The cystic artery was identified and clipped and divided in the usual manner. The gallbladder was now dissected free of the liver bed placed into an Endo Catch and brought out through the umbilical trocar site attention was turned towards her right lobe of the liver. A Kike-Cut needle was introduced into the peritoneal cavity. Lining up with the right lobe of the liver we were able to do a Kike-Cut needle biopsy. We made 2 passes to ensure we had good tissue samples. The electrocautery was used to cauterize the biopsy sites. At this point attention was turned back towards the umbilicus. With the patient returned to the neutral position on the OR table and Endo Close was used to approximate the fascia using an absorbable suture. At this point the pneumoperitoneum was collapsed, the sutures tied, and ezequiel applied to the skin at the end of the procedure he she was in a stable condition was sent to the recovery room. Needle sponge instrument count were correct. No drains were placed. Complications: None Transferred to: Recovery Room Condition: Good
[2022-07-16] MEDS ORDERED: ONDANSETRON 4 MG/2 ML VIAL IV PRN (10:48)
[2022-07-16] MEDS ORDERED: HYDROCODONE/APAP 7.5/325 MG TAB PO PRN (10:49)
[2022-07-16] MEDS ORDERED: Ringers Lactate 1,000 ML IV SCH (11:00)
[2022-07-16] MEDS: HYDROMORPHONE HCL 1 MG/ML INJ ONE ×6 (11:04→12:18)
[2022-07-16 12:43] VITALS: O2SAT 98
--- NOTE | 2022-07-16 13:17 | RAD REPORT ---
EXAM DESCRIPTION: RAD - Fluoroscopy <1 Hour - 07/16/2022 12:53 pm CLINICAL HISTORY: Cholecystectomy FINDINGS: The cystic duct cannulated and contrast administered. Biliary tree is opacified. Contrast flows into duodenum. The common bile duct is normal caliber. No p ermanent filling defects visualized Fluoroscopy time 0.5 minute. Five fluoroscopic spot images obtained The examination was performed by Dr. George
[2022-07-16 17:18] VITALS: BP 104/63; TEMP 97.8
== END 2022-07-16 18:00 | disposition home or self-care (01) ==
LOC: ER 18:27 → ERHOLD 21:19 → 4TH 22:32
PROVIDERS: ADMIT Surgery; ATTEND Surgery
PROC: BF13YZZ Fluoroscopy of Gallbladder and Bile Ducts using Other Contrast (ICD-10-PCS; 2022-07-16)
PROC: 0FB14ZX Excision of Right Lobe Liver, Percutaneous Endoscopic Approach, Diagnostic (ICD-10-PCS; 2022-07-16)
PROC: 0FT44ZZ Resection of Gallbladder, Percutaneous Endoscopic Approach (ICD-10-PCS; principal; 2022-07-16 10:15)
DX: K80.10 Calculus of gallbladder with chronic cholecystitis without obstruction (principal); K80.40 Calculus of bile duct with cholecystitis, unspecified, without obstruction; F32.A Depression, unspecified; F43.10 Post-traumatic stress disorder, unspecified; Z20.822 Contact with and (suspected) exposure to COVID-19
CPT/HCPCS: 85025 ×2; 80048; 36415; 88313; 84703; 81025; 80076; 88304; 88307; 81003; 83690 ×2; 80053; 74177; 76000; 76705; 94010; 99285; 87811; 47563; 47379; Q9967; J2704; J2710; J1630; J2001; J2250 ×2; J3010; J1100; J1170 ×4; G0378 ×3; J7799; J7120 ×2; J7030 ×2; J2405 ×3; J0690